=== PATIENT | female | born 1990 ===

== ENCOUNTER 2018-07-09 08:21 | Emergency (ER) | payer BC ==
[~2018-07-09] VITALS: Ht 165.1 cm; Wt 61.2 kg
[~2018-07-09 08:21] MED LIST: BENADRYL50 MG PO; EPIPEN 2-P0.3 MG/0.3 IM; MEDROL8 MG PO; SINGULAIR10 MG
[2018-07-09] MEDS ORDERED: ALEGRA (08:44)
== END 2018-07-09 15:43 | disposition home or self-care (01) ==
LOC: ER 08:21
DX: K52.89 Other specified noninfective gastroenteritis and colitis (principal)